=== PATIENT | male | born 1975 | race Caucasian/White ===

== ENCOUNTER 2020-07-30 15:47 | Inpatient (IN) | payer MEDICAID ==
[~2020-07-30] VITALS: Ht 188 cm; Wt 81.7 kg
[2020-07-30] MEDS ORDERED: DIPH,PERTUSS(ACELL),TET VAC/PF 0.5 ML IM-VACC ONE ×2 (16:00→16:19)
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
[2020-07-30] MEDS ORDERED: MORPHINE SULFATE 4 MG/ML, 1ML ONE ×3 (16:19→20:58)
[2020-07-30] MEDS ORDERED: CEFAZOLIN PMX 1GM/50ML 50 ML ONE (16:19)
[2020-07-30 16:20] LABS: BASOPHILS % (AUTO) 0 % (0-1); EOSINOPHILS % (AUTO) 0 % (1-7); LYMPHOCYTES % (AUTO) 5 % (22-44); MEAN CORPUSCULAR HEMOGLOBIN 29.1 pg (27.5-34.5); MEAN CORPUSCULAR HGB CONC 33.3 g/dL (33.2-36.2); MEAN PLATELET VOLUME 8.3 fL (7.4-10.4); MONOCYTES % (AUTO) 5 % (2-9); NEUTROPHILS % (AUTO) 90 % (42-75); PLATELET COUNT 398 x10^3/uL (130-400)
[2020-07-30] MEDS ORDERED: PLEASE ENTER ALLERGIES MC SCH (16:30)
[2020-07-30] MEDS ORDERED: CEFAZOLIN PMX 1GM/50ML 50 ML IV ONE (16:30)
[2020-07-30] MEDS ORDERED: VANCOMYCIN PER PHARMACY MC PRN ×2 (16:30→20:00)
[2020-07-30] MEDS ORDERED: MORPHINE SULFATE 4 MG/ML, 1ML IVPush ONE (16:30)
[2020-07-30 16:35] LABS: ALBUMIN 3.4 g/dL (3.4-5.0); ANION GAP 6 mmol/L (5-15); CALCIUM 9.3 mg/dL (8.5-10.1); CHLORIDE 102 mmol/L (98-107)
[2020-07-30 16:38] LABS: ALANINE AMINOTRANSFERASE 31 U/L (12-78); ALKALINE PHOSPHATASE 108 U/L (45-117); BILIRUBIN,TOTAL 0.8 mg/dL (0.2-1.0); CREATININE 0.79 mg/dL (0.7-1.3); TOTAL PROTEIN 8.1 g/dL (6.4-8.2)
[2020-07-30 16:43] LABS: MD SCAN
[2020-07-30] MEDS ORDERED: VANCOMYCIN 1,800 MG in SODIUM CHLORIDE 0.9% 250 ML IV ONE (17:00)
[2020-07-30] MEDS ORDERED: GADOTERATE 7.5 MMOL/15ML SYR ONE (18:23)
--- NOTE | 2020-07-30 18:25 | NUR ---
PT RESTING IN [place] AT THIS TIME, WCTM. PT'S SISTER AND NIECE AT BEDSIDE.
[2020-07-30 18:34] LABS: HCT (SEDRATE) 43.7 % (39.2-51.8)
[2020-07-30] MEDS ORDERED: LIDOCAINE 1%, 10ML INFIL ONE (19:30)
[2020-07-30] MEDS ORDERED: LIDOCAINE-MPF 1%, 5ML ONE (19:32)
[2020-07-30] MEDS: MORPHINE SULFATE 4 MG/ML, 1ML IVPush PRN ×2 (19:42→21:01)
[2020-07-30] MEDS ORDERED: ONDANSETRON 2MG/ML, 2ML IVPush PRN (20:00)
[2020-07-30] MEDS ORDERED: hydrALAzine 20 MG/ML, 1ML IVPush PRN (20:00)
[2020-07-30] MEDS ORDERED: ONDANSETRON ODT 4 MG PO PRN (20:00)
[2020-07-30] MEDS ORDERED: PROMETHAZINE 25 MG/ML, 1ML IM PRN (20:00)
[2020-07-30] MEDS ORDERED: POLYETHYLENE GLYCOL 17 GM PACKET PO PRN (20:00)
[2020-07-30] MEDS ORDERED: ACETAMINOPHEN 325 MG TABLET PO PRN (20:00)
[2020-07-30] MEDS ORDERED: BISACODYL 10 MG SUPP PR PRN (20:00)
--- NOTE | 2020-07-30 20:10 | NUR ---
REPORT GIVEN TO LAYTON MOSQUERA. AWAITING I&D OF LEFT LOWER EXT BEFORE TRANSPORT TO ROOM 347.
--- NOTE | 2020-07-30 20:54 | NUR ---
REPORT RECIEVED FROM EDER TRAYLOR.
[2020-07-30] MEDS ORDERED: PHARMACOKINETIC MONITORING MC PRN (21:00)
[2020-07-30] MEDS ORDERED: PHARMACOKINETIC CONSULTATION MC ONE (21:00)
[2020-07-30 21:14] VITALS: BP 132/83
[2020-07-30] MEDS: PIPERACILLIN/TAZO 3.375 GM in DEXTROSE 5% 50 ML IV SCH (21:26)
[2020-07-30] MEDS: NICOTINE 14MG/24 HR PATCH.TD24 TD SCH (21:27)
[2020-07-30] MEDS: ENOXAPARIN 40 MG/0.4 ML SQ SCH (21:28)
[2020-07-30] MEDS: SODIUM CHLORIDE 0.9% 1,000 ML IV SCH (21:29)
[2020-07-30] MEDS: LACTOBACILLUS CHEW TABLET PO SCH (21:32)
[2020-07-30] MEDS: OXYcodone IR 5MG TABLET PO PRN (21:41)
[2020-07-31] MEDS: OXYcodone IR 5MG TABLET PO PRN ×2 (01:23→08:03)
[2020-07-31 01:31] VITALS: BP 122/73
[2020-07-31] MEDS: PIPERACILLIN/TAZO 3.375 GM in DEXTROSE 5% 50 ML IV SCH (03:20)
[2020-07-31] MEDS: VANCOMYCIN 1,500 MG in SODIUM CHLORIDE 0.9% 250 ML IV SCH ×2 (05:13→16:40)
[2020-07-31] MEDS: morphine SULFATE 10 MG/ML, 1ML IVPush PRN ×4 (05:19→18:58)
[2020-07-31 06:28] LABS: BASOPHILS % (AUTO) 0 % (0-1); EOSINOPHILS % (AUTO) 1 % (1-7); LYMPHOCYTES % (AUTO) 11 % (22-44); MEAN CORPUSCULAR HEMOGLOBIN 29.2 pg (27.5-34.5); MEAN CORPUSCULAR HGB CONC 33.6 g/dL (33.2-36.2); MEAN PLATELET VOLUME 7.9 fL (7.4-10.4); MONOCYTES % (AUTO) 6 % (2-9); NEUTROPHILS % (AUTO) 82 % (42-75); PLATELET COUNT 348 x10^3/uL (130-400); RED BLOOD COUNT 4.19 x10^6/uL (4.38-5.82); RED CELL DISTRIBUTION WIDTH 12.9 % (9.4-14.8)
[2020-07-31 06:29] LABS: MD NO
[2020-07-31 06:41] LABS: ALANINE AMINOTRANSFERASE 21 U/L (12-78); ALBUMIN 2.5 g/dL (3.4-5.0); ANION GAP 5 mmol/L (5-15); CALCIUM 8.2 mg/dL (8.5-10.1); CHLORIDE 103 mmol/L (98-107); CHOLESTEROL, TOTAL 93 mg/dL (140-239); CREATININE 0.73 mg/dL (0.7-1.3)
[2020-07-31 06:49] LABS: ALKALINE PHOSPHATASE 83 U/L (45-117); BILIRUBIN,TOTAL 0.5 mg/dL (0.2-1.0); CHOL/HDL RATIO 5.8; HDL CHOL % 17 % (26-37); HDL CHOLESTEROL (DIRECT) 16 mg/dL (40-60); LDL CHOLESTEROL,CALCULATED 53 mg/dL (54-169); LDL/HDL RATIO 3.3 (0.5-3.0); TOTAL PROTEIN 6.4 g/dL (6.4-8.2); TRIGLYCERIDES 121 mg/dL (50-200); VLDL CHOLESTEROL 24 mg/dL (0-25)
[2020-07-31 07:28] VITALS: BP 141/76
[2020-07-31] MEDS: SENNA/DOCUSATE TABLET PO SCH (08:02)
[2020-07-31] MEDS: LACTOBACILLUS CHEW TABLET PO SCH ×3 (08:02→21:00)
[2020-07-31] MEDS: SODIUM CHLORIDE 0.9% 1,000 ML IV SCH (08:04)
[2020-07-31] MEDS: CEFAZOLIN PMX 1GM/50ML 50 ML IV SCH ×2 (10:17→17:48)
[2020-07-31 13:49] VITALS: BP 113/68
[2020-07-31] MEDS: POTASSIUM CHLORIDE 20 MEQ TAB.ER.PRT PO SCH (17:00)
[2020-07-31] MEDS ORDERED: POTASSIUM CHLORIDE 40 MEQ in SODIUM CHLORIDE 0.9% 500 ML IV ONE (18:00)
[2020-07-31] MEDS ORDERED: PROPOFOL 50 ML ONE (19:52)
[2020-07-31] MEDS ORDERED: FENTANYL PF 250 MCG/5ML ONE (19:53)
[2020-07-31] MEDS ORDERED: DIAZEPAM 5 MG/ML, 2ML IVPush PRN (20:00)
[2020-07-31] MEDS ORDERED: morphine SULFATE 10 MG/ML, 1ML IVPush PRN (20:00)
[2020-07-31] MEDS: NICOTINE 14MG/24 HR PATCH.TD24 TD SCH (20:00)
[2020-07-31] MEDS ORDERED: DIPHENHYDRAMINE 50 MG/ML, 1ML IVPush PRN (20:00)
[2020-07-31] MEDS ORDERED: OXYcodone 5 MG/5 ML ORAL.SOL UDC PO PRN (20:00)
[2020-07-31] MEDS ORDERED: EPHEDRINE 50 MG/ML, 1ML IVPush PRN (20:00)
[2020-07-31] MEDS ORDERED: EPHEDRINE 50 MG/ML, 1ML IM PRN (20:00)
[2020-07-31] MEDS ORDERED: MEPERIDINE/PF 25MG/0.5ML IVPush PRN (20:00)
[2020-07-31] MEDS: ENOXAPARIN 40 MG/0.4 ML SQ SCH (20:00)
[2020-07-31] MEDS ORDERED: LABETALOL 5MG/ML, 20ML IV PRN (20:00)
[2020-07-31] MEDS ORDERED: ONDANSETRON 2MG/ML, 2ML IVPush PRN (20:00)
[2020-07-31] MEDS ORDERED: PROMETHAZINE 25 MG/ML, 1ML IVPush PRN (20:00)
[2020-07-31] MEDS ORDERED: FENTANYL PF 100 MCG/2ML ONE (21:00)
[2020-07-31] MEDS ORDERED: HYDROmorphone 1 MG/ML, 1ML INJ ONE ×2 (21:00→21:23)
[2020-07-31] MEDS ORDERED: OXYcodone 5 MG/5 ML ORAL.SOL UDC ONE (21:01)
[2020-07-31] MEDS: FENTANYL PF 100 MCG/2ML IV PRN ×2 (21:05→21:10)
[2020-07-31] MEDS: HYDROmorphone 1 MG/ML, 1ML INJ IVPush PRN ×4 (21:15→21:35)
[2020-07-31] MEDS ORDERED: DIAZEPAM 5 MG/ML, 2ML ONE (21:27)
[2020-07-31] MEDS ORDERED: MEPERIDINE/PF 25MG/ML,1ML ONE (21:48)
[2020-07-31] MEDS ORDERED: OXYcodone IR 5MG TABLET PO PRN (23:00)
[2020-07-31] MEDS: AMPICILLIN/SULBACTAM 3 GM in SODIUM CHLORIDE 0.9% 100 ML IV SCH (23:30)
[2020-08-01] MEDS: morphine SULFATE 10 MG/ML, 1ML IVPush PRN ×5 (01:40→21:44)
[2020-08-01 01:51] VITALS: BP 137/82
[2020-08-01 04:40] LABS: BASOPHILS % (AUTO) 1 % (0-1); EOSINOPHILS % (AUTO) 1 % (1-7); LYMPHOCYTES % (AUTO) 11 % (22-44); MEAN CORPUSCULAR HEMOGLOBIN 29.6 pg (27.5-34.5); MEAN CORPUSCULAR HGB CONC 33.9 g/dL (33.2-36.2); MEAN PLATELET VOLUME 7.9 fL (7.4-10.4); MONOCYTES % (AUTO) 8 % (2-9); NEUTROPHILS % (AUTO) 79 % (42-75); PLATELET COUNT 326 x10^3/uL (130-400); RED BLOOD COUNT 3.92 x10^6/uL (4.38-5.82); RED CELL DISTRIBUTION WIDTH 12.9 % (9.4-14.8)
[2020-08-01 04:41] LABS: MD NO
[2020-08-01] MEDS: AMPICILLIN/SULBACTAM 3 GM in SODIUM CHLORIDE 0.9% 100 ML IV SCH ×4 (04:44→23:26)
[2020-08-01 04:54] LABS: ANION GAP 5 mmol/L (5-15); CALCIUM 8.1 mg/dL (8.5-10.1); CHLORIDE 103 mmol/L (98-107)
[2020-08-01 04:57] LABS: CREATININE 0.74 mg/dL (0.7-1.3)
[2020-08-01] MEDS: VANCOMYCIN 1,500 MG in SODIUM CHLORIDE 0.9% 250 ML IV SCH ×4 (06:14→21:38)
[2020-08-01 07:36] VITALS: BP 118/71
[2020-08-01 07:56] LABS: VANCOMYCIN,TROUGH 7.7 mcg/mL (5.0-10.0)
[2020-08-01] MEDS: LACTOBACILLUS CHEW TABLET PO SCH ×3 (08:20→19:58)
[2020-08-01] MEDS: POTASSIUM CHLORIDE 20 MEQ TAB.ER.PRT PO SCH ×2 (08:20→16:32)
[2020-08-01] MEDS: SENNA/DOCUSATE TABLET PO SCH (08:20)
[2020-08-01] MEDS: OXYcodone IR 5MG TABLET PO PRN ×3 (10:18→20:10)
[2020-08-01 14:46] VITALS: BP 118/73
[2020-08-01] MEDS: NICOTINE 14MG/24 HR PATCH.TD24 TD SCH (19:58)
[2020-08-01] MEDS: ENOXAPARIN 40 MG/0.4 ML SQ SCH (19:59)
[2020-08-01 20:04] VITALS: BP_SYST 123; BP_SYST 83; BP_DIAS 73
[2020-08-02] MEDS: OXYcodone IR 5MG TABLET PO PRN ×5 (02:45→22:37)
[2020-08-02 02:46] VITALS: BP 122/68
[2020-08-02] MEDS: VANCOMYCIN 1,500 MG in SODIUM CHLORIDE 0.9% 250 ML IV SCH (04:34)
[2020-08-02] MEDS: AMPICILLIN/SULBACTAM 3 GM in SODIUM CHLORIDE 0.9% 100 ML IV SCH ×4 (06:26→23:24)
[2020-08-02] MEDS: morphine SULFATE 10 MG/ML, 1ML IVPush PRN ×4 (07:14→20:29)
[2020-08-02 07:21] VITALS: BP 125/78
[2020-08-02] MEDS: LACTOBACILLUS CHEW TABLET PO SCH ×3 (08:17→20:18)
[2020-08-02] MEDS: SENNA/DOCUSATE TABLET PO SCH (08:17)
[2020-08-02] MEDS: POTASSIUM CHLORIDE 20 MEQ TAB.ER.PRT PO SCH ×2 (08:17→16:45)
[2020-08-02 11:42] LABS: ANION GAP 5 mmol/L (5-15); CALCIUM 8.4 mg/dL (8.5-10.1); CHLORIDE 108 mmol/L (98-107)
[2020-08-02 11:45] LABS: CREATININE 0.65 mg/dL (0.7-1.3)
[2020-08-02 13:23] VITALS: BP 125/79
[2020-08-02 18:36] VITALS: BP 131/78
[2020-08-02] MEDS: NICOTINE 14MG/24 HR PATCH.TD24 TD SCH (20:00)
[2020-08-02] MEDS: ENOXAPARIN 40 MG/0.4 ML SQ SCH (20:19)
[2020-08-03 00:31] VITALS: BP 133/84
[2020-08-03] MEDS: morphine SULFATE 10 MG/ML, 1ML IVPush PRN ×3 (00:46→09:37)
[2020-08-03] MEDS: AMPICILLIN/SULBACTAM 3 GM in SODIUM CHLORIDE 0.9% 100 ML IV SCH ×2 (05:19→10:27)
[2020-08-03 07:23] VITALS: BP 132/82
[2020-08-03] MEDS: LACTOBACILLUS CHEW TABLET PO SCH ×3 (08:29→19:53)
[2020-08-03] MEDS: SENNA/DOCUSATE TABLET PO SCH (08:29)
[2020-08-03] MEDS: POTASSIUM CHLORIDE 20 MEQ TAB.ER.PRT PO SCH ×2 (08:30→16:19)
[2020-08-03] MEDS: OXYcodone IR 5MG TABLET PO PRN ×4 (08:31→19:53)
[2020-08-03] MEDS: MAGNESIUM HYDROXIDE 8%, 30ML UDC PO SCH (10:54)
[2020-08-03 14:02] VITALS: BP 137/86
[2020-08-03] MEDS: CEFTRIAXONE 1,000 MG in DEXTROSE 5% 50 ML IVPB SCH (14:58)
[2020-08-03] MEDS: NICOTINE 14MG/24 HR PATCH.TD24 TD SCH (19:53)
[2020-08-03] MEDS: ENOXAPARIN 40 MG/0.4 ML SQ SCH (19:54)
[2020-08-03 20:56] VITALS: BP 138/84
[2020-08-04] MEDS: OXYcodone IR 5MG TABLET PO PRN ×5 (01:14→20:52)
[2020-08-04 01:16] VITALS: BP 135/88
[2020-08-04] MEDS: POTASSIUM CHLORIDE 20 MEQ TAB.ER.PRT PO SCH (07:46)
[2020-08-04] MEDS: LACTOBACILLUS CHEW TABLET PO SCH ×3 (07:46→20:11)
[2020-08-04 08:03] VITALS: BP 138/86
[2020-08-04] MEDS: SENNA/DOCUSATE TABLET PO SCH (08:48)
[2020-08-04] MEDS: MAGNESIUM HYDROXIDE 8%, 30ML UDC PO SCH (08:48)
[2020-08-04 13:26] VITALS: BP 143/84
[2020-08-04] MEDS: CEFTRIAXONE 1,000 MG in DEXTROSE 5% 50 ML IVPB SCH (15:01)
[2020-08-04] MEDS: NICOTINE 14MG/24 HR PATCH.TD24 TD SCH (20:00)
[2020-08-04] MEDS: ENOXAPARIN 40 MG/0.4 ML SQ SCH (20:00)
[2020-08-04 20:09] VITALS: BP 131/90
[2020-08-05 00:54] VITALS: BP 132/84
[2020-08-05] MEDS: OXYcodone IR 5MG TABLET PO PRN ×3 (00:56→09:47)
[2020-08-05 07:15] VITALS: BP 133/81
[2020-08-05] MEDS: SENNA/DOCUSATE TABLET PO SCH (08:30)
[2020-08-05] MEDS: MAGNESIUM HYDROXIDE 8%, 30ML UDC PO SCH (08:30)
[2020-08-05] MEDS: LACTOBACILLUS CHEW TABLET PO SCH (08:30)
[2020-08-05] MEDS ORDERED: SENN-211 PO (09:41)
[2020-08-05] MEDS ORDERED: OXYC5TAB98 PO (09:41)
[2020-08-05] MEDS ORDERED: ACET325T26 PO (09:41)
[2020-08-05] MEDS ORDERED: CEFD300C37 PO (09:41)
== END 2020-08-05 12:08 | disposition home or self-care (01) | DRG 720 ==
LOC: ED 19:38 → EDIP 19:45 → ED 19:57 → 3N 21:08
PROVIDERS: ADMIT Internal Medicine; ATTEND Hospitalist
PROC: 0Y9L0ZZ Drainage of Left Ankle Region, Open Approach (ICD-10-PCS; principal; 2020-07-30)
DX: A41.9 Sepsis, unspecified organism (principal); L02.416 Cutaneous abscess of left lower limb; F17.210 Nicotine dependence, cigarettes, uncomplicated; L03.116 Cellulitis of left lower limb; Z20.822 Contact with and (suspected) exposure to COVID-19; W20.8XXA Other cause of strike by thrown, projected or falling object, initial encounter; Z79.899 Other long term (current) drug therapy
CPT/HCPCS: 36415; 80048; 80053; 80061; 80202; 83036; 83605; 83735; 84100; 84443; 85025; 85651; 86140; 87040; 87070; 87075; 87077; 87205; 87635; 90471; 90715; 96365; 96375; G0378; J0295; J0690; J0696; J1170; J1650; J2175; J2543; J2704; J3010; J3360; J3370; J3480; A9575; J2270; J7030; J7040; J7050

== ENCOUNTER 2020-08-15 20:01 | Emergency (ER) | payer MEDICAID ==
[~2020-08-15] VITALS: Ht 188 cm; Wt 80.5 kg
[~2020-08-15 20:01] MED LIST: ACET325T26 PO; CEFD300C37 PO; OXYC5TAB98 PO; SENN-211 PO
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
[2020-08-15 21:07] LABS: BASOPHILS % (AUTO) 0 % (0-1); EOSINOPHILS % (AUTO) 5 % (1-7); LYMPHOCYTES % (AUTO) 25 % (22-44); MEAN CORPUSCULAR HEMOGLOBIN 29.4 pg (27.5-34.5); MEAN CORPUSCULAR HGB CONC 33.2 g/dL (33.2-36.2); MEAN PLATELET VOLUME 7.9 fL (7.4-10.4); MONOCYTES % (AUTO) 7 % (2-9); NEUTROPHILS % (AUTO) 63 % (42-75); PLATELET COUNT 398 x10^3/uL (130-400); RED BLOOD COUNT 4.69 x10^6/uL (4.38-5.82); RED CELL DISTRIBUTION WIDTH 14.2 % (9.4-14.8)
[2020-08-15 21:12] LABS: ANION GAP 8 mmol/L (5-15); CALCIUM 8.7 mg/dL (8.5-10.1); CHLORIDE 109 mmol/L (98-107); CREATININE 0.73 mg/dL (0.7-1.3)
[2020-08-15 21:13] LABS: MD NO
[2020-08-15] MEDS ORDERED: KETOROLAC 30 MG/1 ML ONE (22:27)
[2020-08-15] MEDS ORDERED: KETOROLAC 30 MG/1 ML IM ONE (22:30)
[2020-08-15] MEDS ORDERED: MUPIROCIN OINT 2%, 15GM TP ONE (22:30)
[2020-08-15 23:09] VITALS: BP 141/79
== END 2020-08-15 23:11 | disposition home or self-care (01) ==
LOC: ED 21:27
DX: L92.8 Other granulomatous disorders of the skin and subcutaneous tissue (principal); Z72.9 Problem related to lifestyle, unspecified; R00.0 Tachycardia, unspecified; F17.210 Nicotine dependence, cigarettes, uncomplicated
CPT/HCPCS: 36415; 73610; 80048; 85025; 96372; 99284; J1885